=== PATIENT | female | born 1980 | race African-American/Black ===

== ENCOUNTER → 2017-10-17 | Outpatient (CLI) | payer OTHER ==
[~2017-10-17] MED LIST: CHROMAGEN,1 CAPSULE PO; CIPRO500 MG PO; DOCUSATE SODIU100 MG PO; HYDROMORPHONE HC2 MG PO; MOTRIN800 MG PO; Motrin PO; NIFEDIPINE ER30 MG PO; OXYCODONE HCL5 MG PO; PERCOCET 5/31 TABLET PO; PRENATAL TABLE1 EAC3 PO; VITAMIN D400 UNIT PO
== END | disposition home or self-care (01) ==
LOC: NUC 08:00
DX: E05.00 Thyrotoxicosis with diffuse goiter without thyrotoxic crisis or storm (principal)
CPT/HCPCS: 78014; 78999; A9516